=== PATIENT | female | born 1960 | race Caucasian/White ===

== ENCOUNTER 2019-10-14 21:51 | Emergency (ER) | payer OTHER ==
[~2019-10-14] VITALS: Ht 170.2 cm; Wt 68.0 kg
[~2019-10-14 21:51] MED LIST: SYNTHROID100 MCG PO; VICODIN 5-5001 EACH PO
[2019-10-14] MEDS ORDERED: MEGESTROL ACETA40 MG PO (22:00)
[2019-10-14] MEDS ORDERED: PRILOSEC OTC20 MG PO (23:03)
[2019-10-14] MEDS ORDERED: CARAFATE 1 GM TA1 GM PO (23:03)
[2019-10-14 23:16] VITALS: BP 121/60
--- NOTE | 2019-10-16 10:59 | EKG ---
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 : 1960 Requested By: Judith Stout Order Number: [id number] Peter MD: Prabhu Bhat Measurements Intervals [place] Rate: 67 P: 72 WI: 162 QRS: 64 QRSD: 92 T: 16 QT: 386 QTc: 408 Interpretive Statements Sinus rhythm Probable left atrial enlargement Compared to ECG 03/28/2010 14:24:04 T-wave abnormality no longer present Electronically Signed On 10-16-2019 10:58:28 CDT by Prabhu Bhat [email or web address] <ELECTRONICALLY SIGNED> By: Prabhu Bhat MD, [facility] 10/16/19 1058 [id number] Prabhu Bhat MD, [facility] /EPI
== END 2019-10-14 23:20 | disposition home or self-care (01) ==
LOC: M.ERS 21:51
DX: R07.89 Other chest pain (principal); R10.9 Unspecified abdominal pain; E03.9 Hypothyroidism, unspecified; Z98.890 Other specified postprocedural states; Z85.3 Personal history of malignant neoplasm of breast; Z91.040 Latex allergy status